=== PATIENT | female | born 1985 | race Hispanic/Latino ===

== ENCOUNTER 2019-09-22 09:10 | Emergency (ER) | payer SELFPAY ==
[2019-09-22 09:52] LABS: Absolute Lymphocytes (CBC) 2.6 K/uL (0.7-4.9); Basophils % 0.8 % (0-1.3); Hematocrit 42.1 % (36.0-45.0); Lymphocytes % 31.1 % (15.3-44.8); MPV 9.1 fL (7.6-11.3); RBC Red Blood Cell Count 4.48 M/uL (3.86-4.86)
[2019-09-22 10:00] LABS: Urine Blood 1+ (NEG); Urine Glucose NEGATIVE (NEG); Urine Protein TRACE (NEG)
[2019-09-22 10:09] LABS: Albumin 3.9 g/dL (3.4-5.0); Bilirubin Direct 0.2 mg/dL (0-0.2); Bilirubin Total 0.7 mg/dL (0.2-1.0); Potassium 3.8 mmol/L (3.5-5.1); Protein, Total 6.8 g/dL (6.4-8.2)
[2019-09-22] MEDS ORDERED: ONDANSETRON 4 MG/2 ML VIAL ONE (10:25)
[2019-09-22] MEDS ORDERED: MORPHINE 4 MG/ML SYR ONE (10:25)
[2019-09-22] MEDS ORDERED: NA CHLORIDE 0.9% 500 ML ONE (10:26)
--- NOTE | 2019-09-22 11:26 | RAD REPORT ---
EXAM DESCRIPTION: CT - Abdomen Pelvis W Contrast - 09/22/2019 11:04 am CLINICAL HISTORY: Abdominal pain COMPARISON: none. TECHNIQUE: Computed axial tomography of the abdomen pelvis was obtained. 100 cc Isovue-300 was admin istered intravenously. Oral contrast was not requested which limits evaluation of bowel. All CT scans are performed using dose optimization technique as appropriate and may include automated exposure control or mA/KV adjustment according to patient size. FINDINGS: The liver, spleen, pancreas, and adrenals appear unremarkable. Right ureteral stent in place. Minimal right hydronephrosis. A 8 millimeter calculus within the right renal pelvis Hounsfield unit 1051. 16 millimeter calculus left kidney without hydronephrosis. Hounsfield unit 936 Small renal cysts Right renal cortical thinning perhaps secondary prior inflammation There is no evidence of diverticulitis. Normal appendix 2 centimeter irregularly-shaped left ovarian cyst without significant free fluid 2 cm duodenal diverticulum Small umbilical hernia IMPRESSION: 2 centimeter irregularly-shaped left ovarian cyst without significant free fluid. The cy sts has recently ruptured. 16 millimeter nonobstructing left renal calculus Right ureteral stent. Minimal right hydronephrosis. 8 millimeter calculus right renal pelvis is not c urrently obstructing the UPJ
--- NOTE | 2019-09-22 12:16 | ER ---
Nurse's Notes [facility] Name: Gretel Oneil Age: 34 yrs Sex: Female : 1985 Arrival Date: 09/22/2019 Time: 09:11 Bed 14 Private MD: Diagnosis: Other ovarian cysts;Unspecified ovarian cysts Presentation: 09/22 09:23 Presenting complaint: Left flank pain that radiates to left groin x 2 days. Transition hb of care: patient was not received from another setting of care. Onset of symptoms was September 21, 2019. Risk Assessment: Do you want to hurt yourself or someone else? Patient reports no desire to harm self or others. Initial Sepsis Screen: Does the patient meet any 2 criteria? No. Patient's initial sepsis screen is negative. Does the patient have a suspected source of infection?. Care prior to arrival: None. 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 - Social history:: Smoking status: Patient uses tobacco products, denies chronic smoking, but will smoke occasionally. - Ebola Screening: : No symptoms or risks identified at this time. Screenin:40 Abuse screen: Denies threats or abuse. Denies injuries from another. Nutritional ch screening: No deficits noted. Tuberculosis screening: No symptoms or risk factors identified. Fall Risk None identified. Assessment: 09:50 General: Appears in no apparent distress. uncomfortable, Behavior is calm, cooperative, ch appropriate for age. Pain: Complains of pain in left flank, right flank, suprapubic area, right lower quadrant and left lower quadrant Pain currently is 8 out of 10 on a pain scale. Pain began suddenly. 09:50 Neuro: No deficits noted. Respiratory: Airway is patent Respiratory effort is even, ch unlabored, Breath sounds are clear bilaterally. GI: Abdomen is round non-distended, Bowel sounds present X 4 quads. Abd is soft and non tender X 4 quads. 11:07 Reassessment: Patient appears in no apparent distress at this time. Patient and/or ch family updated on plan of care and expected duration. Pain level reassessed. Patient is alert, oriented x 3, equal unlabored respirations, skin warm/dry/pink. pt returned from ct. awaitin results now Patient states feeling better. 11:11 Reassessment: Patient appears in no apparent distress at this time. Patient and/or ch family updated on plan of care and expected duration. Pain level reassessed. Patient is alert, oriented x 3, equal unlabored respirations, skin warm/dry/pink. Patient states feeling better. 12:40 Reassessment: Patient appears in no apparent distress at this time. Patient and/or ch family updated on plan of care and expected duration. Pain level reassessed. pt still reports pain, pt to be medicated before discharge. DISCHARGE DELAYED TILL PHYSICIAN GIVES ORDER FOR PAIN MEDICATION. Vital Signs: 09:24 BP 117 / 80; Pulse 76; Resp 16; Temp 99.3(TE); Pulse Ox 99% on R/A; Weight 81.65 kg; hb Height 5 ft. 3 in. (160.02 cm); Pain 9/10; 11:11 BP 106 / 66; Pulse 74; Resp 16; Temp 98.1(O); Pulse Ox 99% on R/A; Pain 5/10; ch 12:40 BP 110 / 62; Pulse 70; Resp 12; Temp 98.1; Pulse Ox 99% on R/A; Pain 7/10; ch 09:24 Body Mass Index 31.89 (81.65 kg, 160.02 cm) hb ED Course: 09:11 Patient arrived in ED. as 09:22 Evgeny Johnson MD is Attending Physician. kdr 09:24 Triage completed. hb 09:24 Arm band placed on. hb 09:52 Inserted saline lock: 22 gauge in right antecubital area, using aseptic technique. ae4 Blood collected. Missed attempt(s): 22 gauge in right antecubital area. 10:00 Patient has correct armband on for positive identification. Bed in low position. Call ch light in reach. Side rails up X 1. Pulse ox on. NIBP on. Warm blanket given. 10:19 Dona Sanchez RN is Primary Nurse. 11:02 CT completed. Patient tolerated procedure well. Patient moved to CT via wheelchair. nj Patient moved back from CT. 11:11 CT Abd/Pelvis - IV Contrast Only In Process Unspecified. EDMS 12:56 No apparent distress. Resting quietly. ch 12:56 No provider procedures requiring assistance completed. IV discontinued, intact, ch bleeding controlled, No redness/swelling at site. Pressure dressing applied. Administered Medications: 10:19 Drug: morphine 4 mg Route: IVP; Site: right antecubital; ch 12:00 Follow up: Response: No adverse reaction; Pain is decreased ch 10:19 Drug: Zofran 4 mg Route: IVP; Site: right antecubital; ch 12:00 Follow up: Response: No adverse reaction; Pain is decreased ch 10:19 Drug: NS 0.9% 500 ml Route: IV; Rate: bolus; Site: right antecubital; ch 12:20 Follow up: IV Status: Completed infusion; IV Intake: 500ml ch 12:45 Drug: [place] (7.5 mg-325 mg) 1 tabs Route: PO; ch 12:52 Follow up: Response: Medication administered at discharge. ch 12:51 CANCELLED (wrong order): [place] (7.5 mg-325 mg) 2 tabs PO once; RASS on ADMIN: Combtv4, ch Very Agttd3, Agttd2, Rstlss1, AlertClm0, Drwsy-1, Lt Sdtn-2, Mod Sdtn-3, Dp Sdtn-4, UnArsble-5 Intake: 12:20 IV: 500ml; Total: 500ml. Outcome: 12:15 Discharge ordered by . kdr 12:56 Discharged to home ambulatory, with friend. 12:56 Condition: stable 12:56 Discharge instructions given to patient, Instructed on discharge instructions, follow up and referral plans. medication usage, Demonstrated understanding of instructions, follow-up care, medications, Prescriptions given X 2. 12:56 Patient left the ED. Signatures: Dispatcher [employer] EDMS Dona Sanchez, RN RN Evgeny Johnson MD MD kdr Martinez, Amelia as Baxter, Heather, RN RN Jamin Hassan Andrea RN RN ae4
--- NOTE | 2019-09-22 12:17 | EDPHYS ---
Physician Documentation [facility] Name: Gretel Oneil Age: 34 yrs Sex: Female : 1985 Arrival Date: 09/22/2019 Time: 09:11 Bed 14 Private MD: ED Physician Evgeny Johnson HPI: 09/22 11:23 This 34 yrs old Female presents to ER via Ambulatory with complaints of kdr Abdominal Pain, Back Pain. 11:26 The patient presents with abdominal pain in the left upper quadrant, Left flank. Onset: kdr The symptoms/episode began/occurred gradually, 2 day(s) ago. The symptoms radiate to the left flank. Associated signs and symptoms: Pertinent positives: nausea and vomiting, hematuria, Pertinent negatives: anorexia, blood in stools, chest pain, constipation, diarrhea, dysuria, fever, headache, palpitations, shortness of breath, vaginal discharge, vomiting blood. The symptoms are described as achy, crampy, intermittent, vague, waxing/waning. Modifying factors: The symptoms are alleviated by nothing, the symptoms are aggravated by movement, Can't get comfortable. Severity of pain: At its worst the pain was moderate severe in the emergency department the pain has improved mildly. The patient has experienced similar episodes in the past, a few times. The patient has not recently seen a physician. 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 - Social history:: Smoking status: Patient uses tobacco products, denies chronic smoking, but will smoke occasionally. - Ebola Screening: : No symptoms or risks identified at this time. ROS: 11:26 Constitutional: Negative for fever, chills, and weight loss, Eyes: Negative for injury, kdr pain, redness, and discharge, ENT: Negative for injury, pain, and discharge, Neck: Negative for injury, pain, and swelling, Cardiovascular: Negative for chest pain, palpitations, and edema, Respiratory: Negative for shortness of breath, cough, wheezing, and pleuritic chest pain, Back: Negative for injury and pain, : Negative for injury, bleeding, discharge, and swelling, MS/Extremity: Negative for injury and deformity, Skin: Negative for injury, rash, and discoloration, Neuro: Negative for headache, weakness, numbness, tingling, and seizure activity. Psych: Negative for depression, anxiety, suicide ideation, homicidal ideation, and hallucinations, Allergy/Immunology: Negative for hives, rash, and allergies, Endocrine: Negative for neck swelling, polydipsia, polyuria, polyphagia, and marked weight changes, Hematologic/Lymphatic: Negative for swollen nodes, abnormal bleeding, and unusual bruising. 11:26 Abdomen/GI: Positive for abdominal pain, nausea and vomiting, Negative for diarrhea, constipation, abdominal distension, anorexia, dysphagia, hematemesis, black/tarry stool, rectal pain, rectal bleeding, bowel incontinence. Exam: 11:26 Constitutional: This is a well developed, well nourished patient who is awake, alert, kdr and in very mild distress. Head/Face: Normocephalic, atraumatic. Eyes: Pupils equal round and reactive to light, extra-ocular motions intact. Lids and lashes normal. Conjunctiva and sclera are non-icteric and not injected. Cornea within normal limits. Periorbital areas with no swelling, redness, or edema. Neck: Trachea midline, no thyromegaly or masses palpated, and no cervical lymphadenopathy. Supple, full range of motion without nuchal rigidity, or vertebral point tenderness. No Meningismus. Chest/axilla: Normal chest wall appearance and motion. Nontender with no deformity. No lesions are appreciated. Cardiovascular: Regular rate and rhythm with a normal S1 and S2. No gallops, murmurs, or rubs. Normal PMI, no JVD. No pulse deficits. Respiratory: Lungs have equal breath sounds bilaterally, clear to auscultation and percussion. No rales, rhonchi or wheezes noted. No increased work of breathing, no retractions or nasal flaring. Back: No spinal tenderness. No costovertebral tenderness. Full range of motion. Skin: Warm, dry with normal turgor. Normal color with no rashes, no lesions, and no evidence of cellulitis. MS/ Extremity: Pulses equal, no cyanosis. Neurovascular intact. Full, normal range of motion. Neuro: Awake and alert, GCS 15, oriented to person, place, time, and situation. Cranial nerves II-XII grossly intact. Motor strength 5/5 in all extremities. Sensory grossly intact. Cerebellar exam normal. Normal gait. Psych: Awake, alert, with orientation to person, place and time. Behavior, mood, and affect are within normal limits. 11:26 Abdomen/GI: Inspection: abdomen appears normal, Bowel sounds: active, Palpation: soft, mild abdominal tenderness, in the anterior aspect of left lateral abdomen and left upper quadrant. Vital Signs: 09:24 BP 117 / 80; Pulse 76; Resp 16; Temp 99.3(TE); Pulse Ox 99% on R/A; Weight 81.65 kg; hb Height 5 ft. 3 in. (160.02 cm); Pain 9/10; 11:11 BP 106 / 66; Pulse 74; Resp 16; Temp 98.1(O); Pulse Ox 99% on R/A; Pain 5/10; ch 12:40 BP 110 / 62; Pulse 70; Resp 12; Temp 98.1; Pulse Ox 99% on R/A; Pain 7/10; ch 09:24 Body Mass Index 31.89 (81.65 kg, 160.02 cm) hb MDM: 12:15 Patient medically screened. kdr 15:25 Data reviewed: vital signs, nurses notes, lab test result(s), radiologic studies. kdr Counseling: I had a detailed discussion with the patient and/or guardian regarding: the historical points, exam findings, and any diagnostic results supporting the discharge/admit diagnosis, lab results, radiology results, the need for outpatient follow up. 09/22 09:22 Order name: Basic Metabolic Panel; Complete Time: 10:20 kdr 09/22 09:22 Order name: CBC with Diff; Complete Time: 10:20 kdr 09/22 09:22 Order name: Creatinine for Radiology; Complete Time: 10:20 kdr 09/22 09:22 Order name: Hepatic Function; Complete Time: 10:20 kdr 09/22 09:22 Order name: Lipase; Complete Time: 10:20 kdr 09/22 09:54 Order name: Urine Dipstick--Ancillary (enter results); Complete Time: 10:20 bd 09/22 09:22 Order name: IV Saline Lock; Complete Time: 09:52 kdr 09/22 09:54 Order name: Urine --Ancillary (enter results); Complete Time: 10:20 bd 09/22 10:20 Order name: CT Abd/Pelvis - IV Contrast Only; Complete Time: 12:13 kdr 09/22 09:22 Order name: Labs collected and sent; Complete Time: 09:52 kdr Administered Medications: 10:19 Drug: morphine 4 mg Route: IVP; Site: right antecubital; ch 12:00 Follow up: Response: No adverse reaction; Pain is decreased ch 10:19 Drug: Zofran 4 mg Route: IVP; Site: right antecubital; ch 12:00 Follow up: Response: No adverse reaction; Pain is decreased ch 10:19 Drug: NS 0.9% 500 ml Route: IV; Rate: bolus; Site: right antecubital; ch 12:20 Follow up: IV Status: Completed infusion; IV Intake: 500ml ch 12:45 Drug: [place] (7.5 mg-325 mg) 1 tabs Route: PO; ch 12:52 Follow up: Response: Medication administered at discharge. ch 12:51 CANCELLED (wrong order): [place] (7.5 mg-325 mg) 2 tabs PO once; RASS on ADMIN: Combtv4, ch Very Agttd3, Agttd2, Rstlss1, AlertClm0, Drwsy-1, Lt Sdtn-2, Mod Sdtn-3, Dp Sdtn-4, UnArsble-5 Disposition: 09/22/19 12:15 Discharged to Home. Impression: Other ovarian cysts, Unspecified ovarian cysts. - Condition is Stable. - Discharge Instructions: Ovarian Cyst, [id number]. - Prescriptions for Tramadol 50 mg Oral Tablet - take 1 tablet by ORAL route every 8 hours as needed; 12 tablet. promethazine 25 mg Oral Tablet - take 1 tablet by ORAL route every 6 hours As needed; 20 tablet. - Medication Reconciliation Form, Thank You Letter, Prescription Opioid Use form. - Follow up: Private Physician; When: 2 - 3 days; Reason: If symptoms return, Further diagnostic work-up, Recheck today's complaints, Continuance of care, Re-evaluation by your physician. - Problem is new. - Symptoms have improved. - Notes: You will need to follow-up with your doctor as soon as possible for future possible treatment options. Please see the urologist to have your stent evaluated for possible removal. Signatures: Dispatcher [employer] Dona Bowers RN RN Evgeny Johnson MD MD [facility] Erica Molina RN RN Corrections: (The following items were deleted from the chart) 12:51 12:51 [place] (7.5 mg-325 mg) 2 tabs PO once; RASS on ADMIN: Combtv4, Very Agttd3, ch Agttd2, Rstlss1, AlertClm0, Drwsy-1, Lt Sdtn-2, Mod Sdtn-3, Dp Sdtn-4, UnArsble-5 ordered. 12:56 12:15 09/22/2019 12:15 Discharged to Home. Impression: Other ovarian cysts; Unspecified ch ovarian cysts. Condition is Stable. Forms are Medication Reconciliation Form, Thank You Letter, Antibiotic Education, Prescription Opioid Use. Follow up: Private Physician; When: 2 - 3 days; Reason: If symptoms return, Further diagnostic work-up, Recheck today's complaints, Continuance of care, Re-evaluation by your physician. Problem is new. Symptoms have improved. kdr
[2019-09-22] MEDS ORDERED: HYDROCODONE/APAP 7.5/325 MG TAB ONE (12:45)
[2019-09-22 13:14] VITALS: O2SAT 99
[2019-09-22 13:16] VITALS: TEMP 98.1
[2019-09-22 13:17] VITALS: BP 110/62
== END 2019-09-22 12:56 | disposition home or self-care (01) ==
LOC: ER 09:10
DX: N83.299 Other ovarian cyst, unspecified side (principal); Z88.2 Allergy status to sulfonamides; Z72.0 Tobacco use
CPT/HCPCS: 36415; 74177; 80048; 80076; 81003; 81025; 83690; 85025; 96361; 96374; 96375; 99284; J2405; J7040; Q9967